=== PATIENT | female | born 1950 | race Caucasian/White ===

== ENCOUNTER 2017-09-28 10:07 | Outpatient (CLI) | payer MEDICARE, BC, OTHER | END 2017-09-28 10:08 | disposition home or self-care (01) | LOC: BICMAMMO 10:07 | PROVIDERS: ATTEND Internal Medicine | DX: Z12.31 Encounter for screening mammogram for malignant neoplasm of breast (principal); R92.1 Mammographic calcification found on diagnostic imaging of breast; Z80.3 Family history of malignant neoplasm of breast | CPT/HCPCS: 77063; 77067 ==

== ENCOUNTER 2017-10-31 13:13 | Outpatient (CLI) | payer MEDICARE, BC, OTHER ==
--- NOTE | 2017-10-31 13:46 | RAD ---
CHEST PA AND LATERAL: Date: 10/31/17 HISTORY: 67-year-old female with history of dyspnea. COMPARISON: 05/27/14. FINDINGS: There is a moderate size hiatal hernia with an air fluid level increasing in size when compared to e 05/27/14 study. Heart size is within normal limits. The lungs are clear. IMPRESSION: Moderate size hiatal hernia increasing from prior 2013 study. No significant acute intrathoracic dise ase. Mild atherosclerosis of aorta. POS: OFF
== END 2017-10-31 13:14 | disposition home or self-care (01) ==
LOC: RAD 13:13
PROVIDERS: ATTEND Internal Medicine Critical Care Medicine
DX: I70.0 Atherosclerosis of aorta (principal); K44.9 Diaphragmatic hernia without obstruction or gangrene; R06.00 Dyspnea, unspecified
CPT/HCPCS: 71046

== ENCOUNTER 2018-09-07 08:49 | Outpatient (CLI) | payer MEDICARE, BC, OTHER ==
--- NOTE | 2018-09-07 09:48 | BD ---
FDEXA bone densitometry: 09/07/2018 HISTORY: 68-year-old white female for postmenopausal, age-related osteoporosis screening examination. Height 6 0.5 inches. Weight 175 pounds. TECHNIQUE: According to history, the patient has lumbar hardware and left hip replacement hardware. Therefore, t he lumbar spine was not imaged. Instead, right hip and left forearm are imaged. FINDINGS: Distal forearm: Total bone mineral density 0.480 g/sq cm T score -1.8 Z score 0.2 Right hip: Femoral neck: Bone mineral density 0.677 g/sq cm T score -1.6 Z score 0.3 Total hip: Bone mineral density 0.773 g/sq cm T score -1.4 Z score 0.1 IMPRESSION: 1. Bone density of the forearm is osteopenic. Fracture risk is increased. 2. Bone mineral density of hip is osteopenic. Fracture risk is increased.
== END 2018-09-07 08:50 | disposition home or self-care (01) ==
LOC: BICMAMMO 08:49
PROVIDERS: ATTEND Internal Medicine Rheumatology
DX: M81.0 Age-related osteoporosis without current pathological fracture (principal); M85.89 Other specified disorders of bone density and structure, multiple sites
CPT/HCPCS: 77080

== ENCOUNTER 2018-10-01 09:43 | Outpatient (CLI) | payer MEDICARE, BC, OTHER ==
--- NOTE | 2018-10-01 10:41 | MMO ---
Bilateral MAMMO Bilat Screen [facility]. CLINICAL HISTORY: Patient is 68 years old and is seen for screening. The patient has the following family history of breast cancer: paternal aunt; maternal aunt; sister, at age 69 and niece. The patient has no personal history of cancer. The patient has a history of bilateral Excisional Biopsy more than 10 years ago - benign. VIEWS: The views performed were: bilateral craniocaudal with tomosynthesis and bilateral mediolateral oblique with tomosynthesis. FILMS COMPARED: The present examination has been compared to prior imaging studies performed at [facility] on 08/19/2008, 07/27/2009, 07/30/2010, 08/01/2011, 08/02/2012, 08/05/2013, 08/08/2014, 09/16/2015, 09/21/2016 and 09/28/2017, and at [facility] on 07/19/2007 and 07/22/2008. MAMMOGRAM FINDINGS: There are scattered fibroglandular densities. There are benign appearing calcifications seen in both breasts. There are also vascular calcifications. There are no suspicious masses, suspicious calcifications, or new areas of architectural distortion. IMPRESSION: THERE IS NO MAMMOGRAPHIC EVIDENCE OF MALIGNANCY. A ROUTINE FOLLOW-UP MAMMOGRAM IN 1 YEAR IS RECOMMENDED. THE RESULTS OF THIS EXAM WERE SENT TO THE PATIENT. ACR BI-RADS Category 2 - Benign finding MAMMOGRAPHY NOTE: 1. A negative mammogram report should not delay a biopsy if a dominant of clinically suspicious mass is present. 2. Approximately 10% to 15% of breast cancers are not detected by mammography. 3. Adenosis and dense breasts may obscure an underlying neoplasm.
== END 2018-10-01 09:44 | disposition home or self-care (01) ==
LOC: BICMAMMO 09:43
PROVIDERS: ATTEND Internal Medicine
DX: Z12.31 Encounter for screening mammogram for malignant neoplasm of breast (principal); Z80.3 Family history of malignant neoplasm of breast
CPT/HCPCS: 77063; 77067

== ENCOUNTER 2019-04-25 10:25 | Outpatient (CLI) | payer MEDICARE, BC, OTHER ==
--- NOTE | 2019-04-25 10:42 | RAD ---
EXAM: Chest PA and lateral: HISTORY: Dyspnea COMPARISON: 10/31/2017 FINDINGS: Heart: Cardiomegaly Aorta: Atherosclerosis Pulmonary vessels: Normal Costophrenic angles: Costophrenic angles are clear. Lungs: Focal opacity in the left perihilar region. Pneumothorax: No pneumothorax Osseous structures: Stable mild chronic deformity of the superior endplate of the mid thoracic spine at approximately the T6 level. Previously noted hiatal hernia is not appreciated IMPRESSION: Focal opacity in the left perihilar region. Short-term follow-up imaging is recommended Code T
== END 2019-04-25 10:26 | disposition home or self-care (01) ==
LOC: RAD 10:25
PROVIDERS: ATTEND Internal Medicine Critical Care Medicine
DX: R06.00 Dyspnea, unspecified (principal); R91.8 Other nonspecific abnormal finding of lung field
CPT/HCPCS: 71046

== ENCOUNTER 2019-07-09 11:48 | Outpatient (CLI) | payer MEDICARE, BC, OTHER ==
[2019-07-09] MEDS ORDERED: Iopamidol-370 76% 500 ML 1 ML ONE (13:58)
--- NOTE | 2019-07-09 14:29 | CT ---
CT CHEST WITH IV CONTRAST: INDICATION: Followup pulmonary nodule. Nodular density in the left mid lung. A nodular density seen in the left mid lung on chest film on 04/25/2019. FINDINGS: There are mild chronic parenchymal changes in both lung lewis. No focal mass or nodule identified. There is a focus of portal thickening of the posterior left chest which may correspond to the densit y seen on plain film. Mild apical pleural thickening posteriorly. The mediastinum is unremarkable. Both lobes of the thyroid are mildly prominent and heterogeneous. I cannot exclude a dominant nodule in the right lobe of the thyroid. Recommend dedicated thyroid ult rasound evaluation. Images through the upper abdomen unremarkable. Osseous structures unremarkable with mild degenerative changes in the spine. IMPRESSION: No evidence of acute lung process. POS: TINA
== END 2019-07-09 11:49 | disposition home or self-care (01) ==
LOC: BICCT 11:48
PROVIDERS: ATTEND Internal Medicine Critical Care Medicine
DX: R91.1 Solitary pulmonary nodule (principal)
CPT/HCPCS: 71260; 82565; Q9967

== ENCOUNTER 2021-03-01 13:11 | Outpatient (CLI) | payer MEDICARE, BC, OTHER | END 2021-03-01 13:12 | disposition home or self-care (01) | LOC: BICMAMMO 13:11 | PROVIDERS: ATTEND Internal Medicine Rheumatology | DX: M81.0 Age-related osteoporosis without current pathological fracture (principal); M85.859 Other specified disorders of bone density and structure, unspecified thigh | CPT/HCPCS: 77080 ==